=== PATIENT | female | born 1970 | race Caucasian/White ===

== ENCOUNTER 2016-04-07 06:23 | Emergency (ER) | payer MEDICARE, OTHER ==
[2016-04-07] MEDS ORDERED: KETOROLAC 30 MG/ML 1 ML VIAL IVP STA (06:41)
[2016-04-07] MEDS ORDERED: METOCLOPRAMIDE 5 MG/ML 2 ML VIAL IVP STA (06:41)
[2016-04-07] MEDS ORDERED: SODIUM CHLORIDE 0.9% 1,000 ML IV STA (06:41)
[2016-04-07] MEDS ORDERED: HYDROmorphone 1 MG/ML 1 ML SYRINGE IVP STA (06:46)
--- NOTE | 2016-04-07 06:47 | ED ---
General Adult HPI - General Source: patient, EMS, RN notes reviewed Mode of arrival: EMS Limitations: no limitations <Trevor Jeffrey - Last Filed: 04/07/16 06:44> <Selvin Qureshi - Last Filed: 04/07/16 10:01> - General Chief complaint: Abdominal Pain Stated complaint: Back/Flank Pain Time Seen by Provider: 04/07/16 06:32 - History of Present Illness Initial comments: Patient is a pleasant 46-year-old female presenting to the emergency department complaining of right lower back pain. Onset was yesterday afternoon. Symptoms have slowly progressed since that time. Patient thought this was her regular muscle pain and took a baclofen without improvement of symptoms. Patient did have some dry heaves. Nausea has eased off. Patient has been having some sweating. No history of kidney stones. No dysuria or hematuria. Patient denies abdominal discomfort. Patient states areas of right flank/back region. Discomfort is somewhat positional. (Trevor Jeffrey) - Related Data Home Medications Medication Instructions Recorded Confirmed Albuterol Sulfate [Proair Hfa] 2 puff INHALATION RT-QID PRN 10/12/13 04/07/16 Aspirin/Dipyridamole [Aggrenox 1 tab PO BID 10/12/13 04/07/16 25MG -200MG] Atorvastatin [Lipitor] 10 mg PO HS 10/12/13 04/07/16 Baclofen [Lioresal] 20 mg PO Q6H 10/12/13 04/07/16 Citalopram Hydrobromide [CeleXA] 20 mg PO HS 10/12/13 04/07/16 Fesoterodine Fumarate [Toviaz] 8 mg PO DAILY 10/12/13 04/07/16 Fluticasone/Salmeterol [Advair 1 puff INHALATION RT-BID 10/12/13 04/07/16 500-50 Diskus] Furosemide [Lasix] 40 mg PO DAILY PRN 10/12/13 04/07/16 Hydroxychloroquine Sulfate 200 mg PO BID 10/12/13 04/07/16 [Plaquenil] Insulin Aspart [NovoLOG] See Protocol SQ AC-TID 10/12/13 04/07/16 Levothyroxine Sodium [Synthroid] 75 mcg PO DAILY 10/12/13 04/07/16 Modafinil [Provigil] 200 mg PO BID 10/12/13 04/07/16 Nitroglycerin Sl Tabs [Nitrostat] 0.4 mg SL DIRECTED PRN 10/12/13 04/07/16 Pramipexole Di-HCl [Mirapex] 2 mg PO HS 10/12/13 04/07/16 Pregabalin [Lyrica] 300 mg PO BID 10/12/13 04/07/16 Verapamil HCl [Verapamil ER] 180 mg PO DAILY 10/12/13 04/07/16 carBAMazepine [TEGretol] 200 mg PO BID 10/12/13 04/07/16 cloNIDine HCL 0.3 mg PO TID 10/12/13 04/07/16 predniSONE See Taper PO DAILY 10/12/13 04/07/16 Diclofenac Potassium [Cataflam] 50 mg PO Q8H 04/07/16 04/07/16 Haloperidol [Haldol] 0.5 mg PO DAILY PRN 04/07/16 04/07/16 Medroxyprogesterone Acetate 150 mg IM ONCE 04/07/16 04/07/16 [Depo-Provera] metFORMIN HCL [Glucophage] 1,000 mg PO BID 04/07/16 04/07/16 Allergies Allergy/AdvReac Type Severity Reaction Status Date / Time bupropion HCl Allergy Unknown Verified 04/07/16 07:42 [From Wellbutrin] ketorolac tromethamine Allergy Unknown Verified 04/07/16 07:42 [From Toradol] tramadol HCl [From Ultram] Allergy Unknown Verified 04/07/16 07:42 adhesive AdvReac Rash/Hives Verified 04/07/16 07:42 Beta-Blockers AdvReac Unknown Verified 04/07/16 07:42 (Beta-Adrenergic Bloc Review of Systems ROS Other: All systems not noted in ROS Statement are negative. Constitutional: Denies: fever Eyes: Denies: eye pain ENT: Denies: ear pain Respiratory: Denies: cough Cardiovascular: Denies: chest pain Endocrine: Denies: fatigue Gastrointestinal: Denies: abdominal pain (Flank pain) Genitourinary: Denies: dysuria Musculoskeletal: Reports: back pain Skin: Denies: rash Neurological: Denies: weakness <Trevor Jeffrey - Last Filed: 04/07/16 06:44> ROS Other: All systems not noted in ROS Statement are negative. <TitusSelvin - Last Filed: 04/07/16 10:01> ROS Statement: Those systems with pertinent positive or pertinent negative responses have been documented in the HPI. Past Medical History Past Medical History: Asthma, Coronary Artery Disease (CAD), Chest Pain / Angina , COPD, CVA/TIA, Diabetes Mellitus, Fibromyalgia, GERD/Reflux, Hyperlipidemia, Hypertension, Osteoarthritis (OA), Renal Disease, Thyroid Disorder Additional Past Medical History / Comment(s): chronic pain, neuropathy, interstitial lung disease, ddd, CVA APRIL 2009 STILL HAS SOME MEMORY LOSS, MUSCLE SPASMS IN LEGS.POLYCYSTIC OVARY SYNDROME,PANCREATITIS History of Any Multi-Drug Resistant Organisms: None Reported Past Surgical History: Bariatric Surgery, Section, Cholecystectomy, Hernia Repair, Tonsillectomy Additional Past Surgical History / Comment(s): oopherectomy, UMBILICAL HERNIA, VATS BX, BRONCHOSCOPY Past Anesthesia/Blood Transfusion Reactions: No Reported Reaction Additional Past Anesthesia/Blood Transfusion Reaction / Comment(s): CLAUSTERPHOBIC, Past Psychological History: Anxiety, Depression, Panic Disorder Smoking Status: Never smoker Past Alcohol Use History: None Reported Additional Past Alcohol Use History / Comment(s): PT STARTED SMOKING AT AGE EARLY 31'S SMOKED X1 YEAR THEN QUIT, NO ETOH Past Drug Use History: None Reported - Past Family History Father Additional Family Medical History / Comment(s): AGE 72 HEALTHY UNK PROBLEMS Mother Family Medical History: Hypertension Additional Family Medical History / Comment(s): MOM IS 64 <Trevor Jeffrey - Last Filed: 04/07/16 06:44> General Exam Limitations: no limitations General appearance: alert, other (Patient has a difficult time getting comfortable) Head exam: Present: atraumatic Eye exam: Present: normal appearance, PERRL ENT exam: Present: normal oropharynx Neck exam: Present: normal inspection Respiratory exam: Present: normal lung sounds bilaterally Cardiovascular Exam: Present: regular rate, normal rhythm Expanded Peripheral pulses: 2+: Posterior Tibialis (R), Posterior Tibialis (L) GI/Abdominal exam: Present: soft. Absent: distended, tenderness, guarding, rebound, rigid Extremities exam: Present: normal inspection Back exam: Present: normal inspection. Absent: tenderness, CVA tenderness (R), vertebral tenderness Neurological exam: Present: alert, oriented X3, other (Straight leg raise negative ). Absent: motor sensory deficit Psychiatric exam: Present: normal affect, normal mood Skin exam: Absent: rash <Trevor Jeffrey - Last Filed: 04/07/16 06:44> Course <Trevor Jeffrey - Last Filed: 04/07/16 06:44> <Selvin Qureshi - Last Filed: 04/07/16 10:01> Vital Signs 04/07/16 04/07/16 06:25 09:13 Temperature 98.1 F Pulse Rate 81 94 Respiratory 20 16 Rate Blood Pressure 159/89 124/96 O2 Sat by Pulse 97 97 Oximetry - Reevaluation(s) Reevaluation #1: 04/07/16 10:00 The patient did have a panic attack and stated she could not get a CAT scan done she stated that Ativan currently does not work which she is agreed to try some. She did get relief with the Ativan and the CAT scan was performed. (Selvin Qureshi) Medical Decision Making <Trevor Jeffrey - Last Filed: 04/07/16 06:44> - Lab Data Result diagrams: 04/07/16 06:30 04/07/16 06:30 - Radiology Data Radiology results: report reviewed (I did review the imaging and reports no acute findings are seen related to the presentation. This is likely exacerbation of chronic pain.), image reviewed <Selvin Qureshi - Last Filed: 04/07/16 10:01> - Medical Decision Making This is likely exacerbation of chronic pain patient will be discharged with follow-up with her doctor return when necessary (Selvin Qureshi) - Lab Data Lab Results 04/07/16 04/07/16 04/07/16 Range/Units 06:30 06:30 06:30 WBC 8.5 (3.8-10.6) k/uL RBC 3.98 (3.80-5.40) m/uL Hgb 12.7 (11.4-16.0) gm/dL Hct 37.7 (34.0-46.0) % MCV 94.7 (80.0-100.0) fL MCH 32.0 (25.0-35.0) pg MCHC 33.8 (31.0-37.0) g/dL RDW 13.4 (11.5-15.5) % Plt Count 372 (150-450) k/uL Neutrophils % 81 % Lymphocytes % 11 % Monocytes % 5 % Eosinophils % 1 % Basophils % 0 % Neutrophils # 6.9 (1.3-7.7) k/uL Lymphocytes # 0.9 L (1.0-4.8) k/uL Monocytes # 0.4 (0-1.0) k/uL Eosinophils # 0.1 (0-0.7) k/uL Basophils # 0.0 (0-0.2) k/uL PT 9.8 (9.0-12.0) sec INR 1.0 (<1.1) APTT 21.3 L (22.0-30.0) sec Sodium 139 (137-145) mmol/L Potassium 4.2 (3.5-5.1) mmol/L Chloride 103 (98-107) mmol/L Carbon Dioxide 28 (22-30) mmol/L Anion Gap 8 mmol/L BUN 15 (7-17) mg/dL Creatinine 0.49 L (0.52-1.04) mg/dL Est GFR (MDRD) Af Amer >60 (>60 ml/min/1.73 sqM) Est GFR (MDRD) Non-Af >60 (>60 ml/min/1.73 sqM) Glucose 179 H (74-99) mg/dL Calcium 9.1 (8.4-10.2) mg/dL Total Bilirubin 0.5 (0.2-1.3) mg/dL AST 25 (14-36) U/L ALT 55 H (9-52) U/L Alkaline Phosphatase 82 (38-126) U/L Total Protein 6.4 (6.3-8.2) g/dL Albumin 3.7 (3.5-5.0) g/dL Amylase <30 L (30-110) U/L Lipase 43 (23-300) U/L HCG, Quant mIU/mL Urine Color Urine Appearance (Clear) Urine pH (5.0-8.0) Ur Specific [place] (1.001-1.035) Urine Protein (Negative) Urine Glucose (UA) (Negative) Urine Ketones (Negative) Urine Blood (Negative) Urine Nitrate (Negative) Urine Bilirubin (Negative) Urine Urobilinogen (<2.0) mg/dL Ur Leukocyte Esterase (Negative) 04/07/16 04/07/16 Range/Units 06:30 07:52 WBC (3.8-10.6) k/uL RBC (3.80-5.40) m/uL Hgb (11.4-16.0) gm/dL Hct (34.0-46.0) % MCV (80.0-100.0) fL MCH (25.0-35.0) pg MCHC (31.0-37.0) g/dL RDW (11.5-15.5) % Plt Count (150-450) k/uL Neutrophils % % Lymphocytes % % Monocytes % % Eosinophils % % Basophils % % Neutrophils # (1.3-7.7) k/uL Lymphocytes # (1.0-4.8) k/uL Monocytes # (0-1.0) k/uL Eosinophils # (0-0.7) k/uL Basophils # (0-0.2) k/uL PT (9.0-12.0) sec INR (<1.1) APTT (22.0-30.0) sec Sodium (137-145) mmol/L Potassium (3.5-5.1) mmol/L Chloride (98-107) mmol/L Carbon Dioxide (22-30) mmol/L Anion Gap mmol/L BUN (7-17) mg/dL Creatinine (0.52-1.04) mg/dL Est GFR (MDRD) Af Amer (>60 ml/min/1.73 sqM) Est GFR (MDRD) Non-Af (>60 ml/min/1.73 sqM) Glucose (74-99) mg/dL Calcium (8.4-10.2) mg/dL Total Bilirubin (0.2-1.3) mg/dL AST (14-36) U/L ALT (9-52) U/L Alkaline Phosphatase (38-126) U/L Total Protein (6.3-8.2) g/dL Albumin (3.5-5.0) g/dL Amylase (30-110) U/L Lipase (23-300) U/L HCG, Quant 3.6 mIU/mL Urine Color Yellow Urine Appearance Clear (Clear) Urine pH 5.5 (5.0-8.0) Ur Specific [place] 1.022 (1.001-1.035) Urine Protein Trace H (Negative) Urine Glucose (UA) 3+ H (Negative) Urine Ketones Trace H (Negative) Urine Blood Negative (Negative) Urine Nitrate Negative (Negative) Urine Bilirubin Negative (Negative) Urine Urobilinogen <2.0 (<2.0) mg/dL Ur Leukocyte Esterase Negative (Negative) Disposition <Trevor Jeffrey - Last Filed: 04/07/16 06:44> <Selvin Qureshi - Last Filed: 04/07/16 10:01> Clinical Impression: Back pain Disposition: HOME SELF-CARE Condition: Good Instructions: Low Back Strain (ED), Chronic Back Pain (ED)
[2016-04-07 07:07] LABS: Basophils % (A) 0 %; CH 32.9; CHCM 34.9; Eosinophils # (A) 0.1 k/uL (0-0.7); Eosinophils % (A) 1 %; HCT 37.7 % (34.0-46.0); HDW 3.04; HGB 12.7 gm/dL (11.4-16.0); Luc # (Auto) 0.21; Luc % (Auto) 3; Lymphocytes # (A) 0.9 k/uL (1.0-4.8); Lymphocytes % (A) 11 %; MCHC 33.8 g/dL (31.0-37.0); MCV 94.7 fL (80.0-100.0); Mean Platelet Volume 6.3; Monocytes # (A) 0.4 k/uL (0-1.0); Monocytes % (A) 5 %; Neutrophils # (A) 6.9 k/uL (1.3-7.7); Neutrophils % (A) 81 %; RBC 3.98 m/uL (3.80-5.40); RDW 13.4 % (11.5-15.5); WBC 8.5 k/uL (3.8-10.6)
[2016-04-07 07:20] LABS: ALT 55 U/L (9-52); AST 25 U/L (14-36); Alkaline Phosphatase 82 U/L (38-126); Amylase <30 U/L (30-110); Anion Gap 8 mmol/L; Blood Urea Nitrogen 15 mg/dL (7-17); Calcium 9.1 mg/dL (8.4-10.2); Carbon Dioxide 28 mmol/L (22-30); Chloride 103 mmol/L (98-107); Glucose 179 mg/dL (74-99); Non-African American GFR(MDRD) >60 (>60 ml/min/1.73 sqM); Potassium 4.2 mmol/L (3.5-5.1); Sodium 139 mmol/L (137-145); Total Bilirubin 0.5 mg/dL (0.2-1.3); Total Protein 6.4 g/dL (6.3-8.2)
[2016-04-07 07:28] LABS: Prothrombin Time 9.8 sec (9.0-12.0)
[2016-04-07 07:33] LABS: Partial Thromboplastin Time 21.3 sec (22.0-30.0)
[2016-04-07] MEDS ORDERED: LORazepam 2 MG/ML SYRINGE IV STA (07:41)
[2016-04-07 08:04] LABS: Appearance,Urine Clear (Clear); Bilirubin,Urine Negative (Negative); Glucose,Urine (UA) 3+ (Negative); Ketones,Urine Trace (Negative); Leukocyte Esterase,Urine Negative (Negative); Nitrite,Urine Negative (Negative); PH, Urine 5.5 (5.0-8.0); Protein,Urine Trace (Negative); Specific Gravity,Urine 1.022 (1.001-1.035); UA Billing (MACRO vs. MICRO) CHEM; Urobilinogen,Urine <2.0 mg/dL (<2.0)
--- NOTE | 2016-04-07 09:12 | CT ---
EXAMINATION TYPE: CT abdomen pelvis wo con DATE OF EXAM: 04/07/2016 8:41 AM COMPARISON: 03/06/2013 HISTORY: 46-year-old female Back and flank pain since 1600 hours on 04/06/2016 CT DLP: 2735.90 mGycm. Automated exposure control for dose reduction was used. TECHNIQUE: Contiguous axial scanning of the abdomen and pelvis without IV contrast. Coronal and sagit blanquita reconstructions performed. FINDINGS: Heart is upper limits of normal in size without pericardial effusion. Lung bases clear without pleura l effusion. Noncontrast appearance of the liver, adrenal glands, kidneys, spleen, and pancreas show no gross abno rmality. Cholecystectomy clips are present. A lap band is also present. The orientation of the lap band is unchanged from prior exam. The port si te appears unremarkable. Similar reticulations within the subcutaneous fat especially of the mid to lower abdomen with skin th ickening noted anteriorly and in the periumbilical region also relatively similar prior. No dilated small bowel, free fluid, or free air. No mesenteric or retroperitoneal lymphadenopathy. Th ere is some breathing motion causing artifacts. Portions of a normal appendix appear to be visualized, coronal images 49 through 52. There is mild st ool within the right hemicolon. No pericolonic inflammatory change. Bladder is nondistended. Uterus is visualized. Closely clustered small bowel loops in the pelvis and lack of contrast limits evaluation. Rectum appears normal. No abnormal fluid collection in the pelvis or pelvic lymphadenopathy seen. Bones: Old healed fracture deformity of the right inferior pubic ramus and multilevel degenerative ch anges throughout the lumbar and lower thoracic spine. No osseous destructive process. IMPRESSION: 1. Some edematous change within the subcutaneous fat of the mid to lower abdomen with anterior and p eriumbilical skin thickening. Correlate to exclude any evidence of cellulitis. 2. Stable appearance to the patient's lap band. 3. Otherwise, no acute inflammatory process identified. 4. Multilevel degenerative changes in the lumbar and visualized lower thoracic spine.
[2016-04-07 10:07] VITALS: BP 129/78; PULSE 86; RESP 22; TEMP 97.9
== END 2016-04-07 10:14 | disposition home or self-care (01) ==
LOC: EC 06:23
DX: M54.5 Low back pain (principal); G89.29 Other chronic pain; F41.0 Panic disorder [episodic paroxysmal anxiety]; J44.9 Chronic obstructive pulmonary disease, unspecified; J45.909 Unspecified asthma, uncomplicated; E11.9 Type 2 diabetes mellitus without complications; M79.7 Fibromyalgia; E78.5 Hyperlipidemia, unspecified; K21.9 Gastro-esophageal reflux disease without esophagitis; E07.9 Disorder of thyroid, unspecified; F32.9 Major depressive disorder, single episode, unspecified; Z79.51 Long term (current) use of inhaled steroids; Z79.84 Long term (current) use of oral hypoglycemic drugs; Z79.899 Other long term (current) drug therapy; Z79.52 Long term (current) use of systemic steroids; Z87.891 Personal history of nicotine dependence
CPT/HCPCS: 36415; 80053; 82150; 83690; 85025; 85610; 85730; 81003; 84702; 74176; 99285; 96374; 96375 ×2; 96361 ×3; J2060; J2765; J1170

== ENCOUNTER → 2016-05-12 | Outpatient (CLI) | payer MEDICARE ==
--- NOTE | 2016-05-12 10:18 | XR ---
EXAMINATION TYPE: XR elbow limited LT DATE OF EXAM ORDERED: 05/12/2016 10:13 AM HISTORY: M25.522 pain L elbow. COMPARISON: None. FINDINGS: No fracture, dislocation or elbow joint effusion is seen. IMPRESSION: NORMAL LEFT ELBOW.
== END | disposition home or self-care (01) ==
LOC: RADXRMAIN 09:47
PROVIDERS: ATTEND Family Medicine
DX: M25.522 Pain in left elbow (principal)

== ENCOUNTER → 2016-07-24 | Outpatient (CLI) | payer MEDICARE, OTHER ==
--- NOTE | 2016-07-27 08:50 | MM ---
Reason for exam: screening (asymptomatic). Last mammogram was performed 1 year and 7 months ago. History: Took hormonal contraceptives for 4 years. Taking progesterone for 6 years 5 months beginning at age 36. Physical Findings: A clinical breast exam by your physician is recommended on an annual basis and results should be correlated with mammographic findings. MG 3D Screening Mammo W/Cad Bilateral CC and MLO view(s) were taken. Prior study comparison: December 13, 2014, bilateral MG screening mammo w CAD. April 05, 2012, bilateral digital screening mammo w/CAD. There are scattered fibroglandular densities. No significant changes when compared with prior studies. ASSESSMENT: Benign, BI-RAD 2 RECOMMENDATION: Routine screening mammogram of both breasts in 1 year.
== END | disposition home or self-care (01) ==
LOC: RADMAMWWP 07:22
PROVIDERS: ATTEND Family Medicine
DX: Z12.31 Encounter for screening mammogram for malignant neoplasm of breast (principal)
CPT/HCPCS: 77063; G0202

== ENCOUNTER → 2016-08-07 | Outpatient (CLI) | payer MEDICARE, OTHER ==
--- NOTE | 2016-08-07 14:28 | XR ---
EXAMINATION TYPE: XR lumbar spine 2 or 3V DATE OF EXAM: 08/07/2016 CLINICAL HISTORY: Degenerative disc disease per patient. Low back pain per order. TECHNIQUE: Frontal and lateral images of the lumbar spine are obtained. COMPARISON: CT abdomen and pelvis April 07, 2016. FINDINGS: There are 5 lumbar type vertebral bodies identified. The lumbar spine shows satisfactory alignment without evidence of acute fracture or dislocation. Vertebral body heights are maintained. T here is multilevel disc space narrowing at is advanced at L3-L4 and L5-S1 levels. Endplate sclerosis is present. There is multilevel vacuum disc phenomenon redemonstrated. There is moderate multilevel a nterior and lateral spurring. Lap band device is seen overlying soft tissue. Cholecystectomy clips ar e redemonstrated. IMPRESSION: No acute fracture or dislocation is seen in the lumbar spine. Degenerative changes mid t o lower lumbar spine as detailed above without significant change from recent CT.
== END ==
LOC: RADXRMAIN 14:05
PROVIDERS: ATTEND Family Medicine
DX: M47.816 Spondylosis without myelopathy or radiculopathy, lumbar region (principal)
CPT/HCPCS: 72100

== ENCOUNTER → 2016-09-18 | Outpatient (CLI) | payer MEDICARE, OTHER ==
--- NOTE | 2016-09-18 10:12 | US ---
EXAMINATION TYPE: US pelvic complete DATE OF EXAM: 09/18/2016 COMPARISON: CT CLINICAL HISTORY: Abd mass LUQ R19.02. TECHNIQUE: Transabdominal (TA) Date of LMP: 4 years ago, patient on depo shot EXAM MEASUREMENTS: Uterus: 6.1 x 2.3 x 3.6 cm Endometrial Stripe: 0.5 cm Right Ovary: 1.6 x 1.4x 2.4 cm Left Ovary: Surgically absent cm 1. Uterus: Anteverted wnl 2. Endometrium: wnl 3. Right Ovary: wnl 4. Left Ovary: Surgically absent 5. Bilateral Adnexa: wnl 6. Posterior cul-de-sac: no free fluid IMPRESSION: 1. Normal pelvic ultrasound
--- NOTE | 2016-09-18 10:31 | US ---
EXAMINATION TYPE: US abdomen complete DATE OF EXAM: 09/18/2016 COMPARISON: CT CLINICAL HISTORY: Abd mass LUQ R19.02. patient has extensive abdominal surgery history of cholecystec pippa, hernia repair, laporascopic surgery repair, left oopherectomy. EXAM MEASUREMENTS: Liver Length: 14.3 cm Gallbladder Wall: Surgically absent cm CBD: 0.5 cm Spleen: 10.6 cm Right Kidney: 12.7 x 5.3 x 6.2 cm Left Kidney: 11.8 x 6.0 x 7.1 cm Pancreas: visualized portions appear echogenic Liver: echogenic focus left lobe measuring 1.4 x 1.2 x 1.4. No appreciable background hepatic steato sis or hepatocellular disease sonographically. Gallbladder: Surgically absent CBD: wnl Spleen: wnl Right Kidney: No hydronephrosis or masses seen Left Kidney: No hydronephrosis or masses seen Upper IVC: wnl Abd Aorta: wnl Scanned LLQ over palpable per patient, no definite abnormality seen, this area feels like thickenin g versus mass affect. The intrahepatic portion of the IVC and proximal abdominal aorta are within normal limits. Common bi le duct is unremarkable. The visualized portions of the pancreas are homogenous. The spleen is unre markable. Kidneys are symmetric and free of hydronephrosis. No renal lesions are seen. IMPRESSION: 1. Solitary hyperechoic 1.4 cm lesion within the left lower lobe liver. In a patient with no history of hepatocellular disease this most commonly represents a benign hepatic hemangioma. If further loren cterization is warranted dynamic contrast-enhanced CT or MR could be performed as this abnormality wa s not appreciated on the unenhanced CT of 04/07/2016. 2. No sonographic abnormality in left lower quadrant over the region of the patient's palpable abnorm ality other than skin thickening up to 4 mm as seen on the prior CT of 04/07/2016.
== END | disposition home or self-care (01) ==
LOC: RADUSWWP 09:16
PROVIDERS: ATTEND Family Medicine
DX: K76.9 Liver disease, unspecified (principal); R19.02 Left upper quadrant abdominal swelling, mass and lump
CPT/HCPCS: 76700; 76856

== ENCOUNTER → 2017-01-05 | Outpatient (CLI) | payer MEDICARE, OTHER ==
[~2017-01-05] MED LIST: DOBUTamine DRIP for NUC MED 500 MG in DEXTROSE/WATER 1 250ML.BAG IV ONE
--- NOTE | 2017-01-05 10:32 | US ---
EXAMINATION TYPE: US abdomen complete DATE OF EXAM: 01/05/2017 COMPARISON: US 2017 CLINICAL HISTORY: 46-year-old female R16.0 LIVER MASS LT LOBE. Follow up left liver lesion, history o f cholecystectomy, TECHNIQUE: Multiple sonographic images of the abdomen are obtained. FINDINGS: Rubber Insulator notes: obese patient Liver Length: 20.0 cm Gallbladder Wall: surgically absent CBD: 0.5 cm Spleen: 13.8 cm Right Kidney: 11.0 x 6.0 x 5.4 cm Left Kidney: 11.4 x 6.3 x 5.4 cm Pancreas: visualized portions appear hyperechoic, tail obscured by overlying midline bowel gas Liver: Enlarged at 20 cm. Redemonstrated 1.7 x 1.4 x 1.5cm hyperechoic lesion in the left hepatic lo be. Previously, this was measured at 1.4 x 1.2 x 1.4 cm. Suspect that this is relatively stable allow ing for some differences in measurement technique. Additional short interval follow-up is recommended . Gallbladder: surgically absent Evidence for sonographic Baird's sign: no CBD: visualized portions wnl, limited by overlying bowel gas Spleen: Borderline enlarged at 13.8cm, limited by overlying bowel gas Right Kidney: wnl Left Kidney: wnl Upper IVC: wnl Abd Aorta: visualized portions appear wnl, limited by overlying midline bowel gas IMPRESSION: 1. Hepatomegaly and hepatic steatosis. Correlate with LFTs, lipid profile, and patient risk factors. 2. 1.7 x 1.5 cm hyperechoic lesion in the left liver lobe. Suspected hemangioma. This is stable to po ssibly minimally increased in size, previously measured at 1.4 x 1.2 cm. Continued short interval (3- 6 months) follow-up is recommended.
--- NOTE | 2017-01-05 13:07 | ECHOS ---
STRESS ECHOCARDIOGRAM DATE OF SERVICE: 01/05/2017 MEDICATIONS:: BASELINE HEART RATE: 91 BASELINE BLOOD PRESSURE: MAXIMUM HEART RATE: 151 MAXIMUM BLOOD PRESSURE: 174/48 85% MPHR: 100% MPHR: METS: MAXIMUM STAGE REACHED: TOTAL EXERCISE TIME: INDICATIONS: Chest pain. CLINICAL INFORMATION: DOBUTAMINE STRESS ECHO REPORT Patient was given dobutamine infusion according to the standard protocol. Peak heart rate of 151 was achieved. Maximum blood pressure of 174/48 mmHg was noted. The resting EKG shows normal sinus rhythm with normal MA interval and QRS duration and normal ST-T waves. No ST-segment depression suggestive of ischemia is noted. The baseline echocardiographic images reveal normal left ventricular chamber size with normal left ventricular systolic function. At the peak dose of dobutamine infusion, normal increase in the wall thickness and contractility is noted. FINAL IMPRESSION: This dobutamine stress echocardiographic study is negative for stress-induced ischemia. The EKG portion of the stress test is not suggestive of ischemia. MMODL / IJN: [id number] /
== END | disposition home or self-care (01) ==
LOC: RADUSWWP 08:59
PROVIDERS: ATTEND Family Medicine
DX: K76.0 Fatty (change of) liver, not elsewhere classified (principal); K76.89 Other specified diseases of liver; I51.7 Cardiomegaly; E11.9 Type 2 diabetes mellitus without complications; I10 Essential (primary) hypertension
CPT/HCPCS: 93017; 76700; C8928; Q9957; 93350

== ENCOUNTER → 2017-03-24 | Outpatient (CLI) | payer MEDICARE ==
[2017-03-25 01:25] LABS: Gliadin AB IgA, Unit <0.2 U/mL
== END | disposition home or self-care (01) ==
LOC: LABWHC1 16:49
PROVIDERS: ATTEND Internal Medicine Gastroenterology
DX: K52.9 Noninfective gastroenteritis and colitis, unspecified (principal)
CPT/HCPCS: 36415; 83516; 87045; 87046; 87324; 87328; 87329; 89055

== ENCOUNTER → 2017-06-18 | Outpatient (CLI) | payer MEDICARE ==
--- NOTE | 2017-06-22 11:57 | P.ARTDOP ---
Arterial Doppler LOWER EXTREMITY ARTERIAL DOPPLER: DATE OF SERVICE: 06/18/2017 Reason for study: Bilateral leg pain. Doppler waveforms: Multiphasic bilaterally throughout. Pulse volume recording: Normal configurations throughout. Pressure gradients: None significance Ankle-brachial indices: Greater than 1 bilaterally. Toe pressures: 81 on the right, 66 on the left Impression: Normal study.
== END | disposition home or self-care (01) ==
LOC: RADUSWWP 07:00
PROVIDERS: ATTEND Family Medicine
DX: M79.605 Pain in left leg (principal); G89.29 Other chronic pain
CPT/HCPCS: 93923

== ENCOUNTER → 2017-09-24 | Outpatient (CLI) | payer MEDICARE ==
[2017-09-24 08:03] LABS: Blood Urea Nitrogen 14 mg/dL (7-17)
--- NOTE | 2017-09-24 10:16 | CT ---
EXAMINATION TYPE: CT abdomen pelvis w con DATE OF EXAM: 09/24/2017 COMPARISON: 12/09/2016 HISTORY: 47-year-old female Urgency of urination, liver disease TECHNIQUE: Contiguous axial scanning of the abdomen and pelvis following administration of 100 ml Iso hudson 300 IV contrast. Delayed images through the kidneys and coronal/sagittal reconstructions perform ed. CT DLP: 1977 mGycm Automated exposure control for dose reduction was used. FINDINGS: Heart upper limits of normal in size without pericardial effusion. Lung bases clear without pleural effusion. Tiny hiatal hernia. Lap band is in place. Liver borderline enlarged at 17.9 cm. There is focal fat along the anterior falciform ligament redemo nstrated. Tight liver windows show faint 1.4 cm hypodensity in the segment 3 left liver lobe, axial i mage 31 which probably corresponds to the 09/18/2016 ultrasound finding. Overall size is unchanged. Sim ilar faint hypodensity was present in retrospect on the 12/09/2016 CT as well. No other focal liver l esion seen. No biliary ductal dilatation. Patient status post cholecystectomy. Portal venous system i s patent. Adrenal glands, right kidney, spleen, and pancreas appear within normal limits. Stable 1.5 cm medial left renal cyst. No dilated small bowel, free fluid, or free air. No mesenteric or retroperitoneal lymphadenopathy. Normal appendix. Oral contrast progressed into the transverse colon. There is moderate stool burden w ithout pericolonic inflammatory change. Similar skin thickening along the mid and lower abdomen with some subcutaneous fat reticulation. Bladder partially distended. Uterus and right ovary are visualized. Left ovary not clearly seen. No a bnormal fluid collection in the pelvis or pelvic lymphadenopathy. Bones: Old healed fracture of the right inferior pubic ramus. Degenerative changes throughout the vis ualized spine with nearly grade 2 anterolisthesis at L4-L5. IMPRESSION: 1. BORDERLINE SIZE LIVER (17.9 CM). THERE IS SOME FOCAL FAT ANTERIORLY AND A VAGUE HYPODENSE LESION M EASURING 1.4 CM IN THE LEFT LIVER LOBE LIKELY CORRESPONDING TO THE 09/18/2016 ECHOGENIC ULTRASOUND FIND ING. ATYPICAL HEMANGIOMA OR AN AREA OF FOCAL FAT ARE SUSPECTED GIVEN THE STABILITY. 2. ADVANCED DEGENERATIVE CHANGES THROUGHOUT THE SPINE WITH NEARLY GRADE 2 ANTEROLISTHESIS AT L4-L5. 3. SKIN THICKENING ALONG THE ANTERIOR MID TO LOWER ABDOMINAL WALL WITH RETICULATIONS IN THE SUBCUTANE OUS FAT. POSSIBLE CHRONIC CUTANEOUS INDURATION. CORRELATE TO EXCLUDE CELLULITIS.
== END | disposition home or self-care (01) ==
LOC: RADCTMAIN 07:27
PROVIDERS: ATTEND Family Medicine
DX: K76.89 Other specified diseases of liver (principal); R23.4 Changes in skin texture
CPT/HCPCS: 82565; 84520; 74177; 36415; Q9967

== ENCOUNTER → 2017-11-05 | Outpatient (CLI) | payer MEDICARE ==
[2017-11-05 12:28] LABS: Anion Gap 10 mmol/L; Blood Urea Nitrogen 16 mg/dL (7-17); Calcium 9.5 mg/dL (8.4-10.2); Carbon Dioxide 26 mmol/L (22-30); Chloride 106 mmol/L (98-107); Glucose 98 mg/dL (74-99); Magnesium 1.7 mg/dL (1.6-2.3); Potassium 4.6 mmol/L (3.5-5.1); Sodium 142 mmol/L (137-145)
== END ==
LOC: LABWHC1 10:39
PROVIDERS: ATTEND Internal Medicine
DX: E78.2 Mixed hyperlipidemia (principal); I10 Essential (primary) hypertension; R07.89 Other chest pain
CPT/HCPCS: 36415; 80048; 83735

== ENCOUNTER 2017-11-10 06:38 | Day surgery (SDC) | payer MEDICARE ==
[2017-11-08 13:03] VITALS: BMI 39.1
[~2017-11-10 06:38] MED LIST changes: -DOBUTamine DRIP for NUC MED 500 MG in DEXTROSE/WATER 1 250ML.BAG IV ONE; +HYDROmorphone 0.5 MG/0.5 ML SYRINGE IVP PRN; +LACTATED RINGERS 1,000 ML IV SCH; +LIDOCAINE 1% 20 ML VIAL (10MG/ML) FOR IV START INTRADERMA PRN
[2017-11-10 07:10] VITALS: TEMP 98.5
[2017-11-10] MEDS ORDERED: HYDROCORTISONE SUCCINATE 100 MG/2 ML VIAL IV STA (07:14)
[2017-11-10 07:21] LABS: Glucose,Whole Blood 122 mg/dL (75-99)
[2017-11-10] MEDS ORDERED: PROPOFOL 10 MG/ML 20 ML VIAL IV ONE (07:38)
[2017-11-10 08:08] VITALS: RESP 16
[2017-11-10 08:36] VITALS: BP 118/80; PULSE 72
--- NOTE | 2017-11-10 08:36 | P.PCN ---
Date of Procedure: 11/10/17 Procedure(s) Performed: Brief history: Patient is a pleasant 47-year-old white female, scheduled for an upper endoscopy as well as colonoscopy as a part of evaluation of evaluation of progressive dysphagia to solids for the last 10 years duration. She has history of lab and surgery done in 2006 and since then has been having persistent dysphagia. She usually has stomach with solids mostly with bread and meat. She is status post hiatal hernia repair by Dr. Bird. She also has intermittent rectal bleeding and hence scheduled for colonoscopy today. Procedure performed: Esophagogastroduodenoscopy and biopsy Colonoscopy Preoperative diagnosis: Dysphagia Rectal bleeding Anesthesia: MAC Procedure: After informed consent was obtained from the patient was brought into the endoscopy unit and IV sedation was administered by anesthesia under continuous monitoring. Initially upper endoscopy was done. The Olympus GF 160 video endoscope was inserted inserted into the mouth and esophagus intubated without any difficulty and was gradually advanced into the stomach and duodenum and carefully examined. The bulb and second part of the duodenum appeared normal. The scope was then withdrawn into the stomach adequately insufflated with air and upon careful examination the antrum had erosive gastritis and biopsies were done from this area. The body, cardia and fundus appeared normal. The scope was then withdrawn into the esophagus. The GE junction was located at 39 cm to the incisors. It appeared regular with no erythema erosions or ulcerations. Rest of the esophagus appeared normal. biopsies were done from the distal esophagus rule out esophagitis or peptic esophagitis. No evidence of esophageal stricture. Patient tolerated the procedure well. At this time the patient continued to remain sedation. Initial digital rectal examination was normal. Olympus CF 160 video colonoscope was then inserted into the rectum and gradually advanced to the cecum without any difficulty. Careful examination was performed as the scope was gradually being withdrawn. The prep was excellent. The cecum, ascending colon, transverse colon, descending colon, sigmoid colon and rectum appeared normal. Retroflexion was performed in the rectum ansmall internal hemorrhoidsere noted. Patient tolerated the procedure well. Impression: 1. Upper endoscopy revealed antral erosive gastritis and a small hiatal hernia. 2. Colonoscopy was essentially within normal limits with no evidence of colitis or colorectal neoplasia. Small internal hemorrhoids seen. Recommendations: Findings of this examination were discussed with the patient as well mahsa family. She was advised to follow with the biopsy results. She will continue her current medications and she'll be seen in office in 2-4 weeks.
== END 2017-11-10 09:12 | disposition home or self-care (01) ==
LOC: ORWHC2ENDO 06:38
PROVIDERS: ATTEND Internal Medicine Gastroenterology
DX: K52.81 Eosinophilic gastritis or gastroenteritis (principal); K29.50 Unspecified chronic gastritis without bleeding; K44.9 Diaphragmatic hernia without obstruction or gangrene; K64.8 Other hemorrhoids; I20.9 Angina pectoris, unspecified; I10 Essential (primary) hypertension; E78.5 Hyperlipidemia, unspecified; J98.4 Other disorders of lung; J84.10 Pulmonary fibrosis, unspecified; I69.311 Memory deficit following cerebral infarction; E72.12 Methylenetetrahydrofolate reductase deficiency; Z79.890 Hormone replacement therapy; Z79.52 Long term (current) use of systemic steroids; Z79.899 Other long term (current) drug therapy; Z88.5 Allergy status to narcotic agent; Z88.8 Allergy status to other drugs, medicaments and biological substances
CPT/HCPCS: 88305; 45378; 43239; J1720; J2704

== ENCOUNTER → 2018-04-14 | Outpatient (CLI) | payer MEDICARE ==
--- NOTE | 2018-04-15 10:29 | MM ---
Reason for exam: screening (asymptomatic). Last mammogram was performed 1 year and 9 months ago. History: Took hormonal contraceptives for 4 years. Taking progesterone for 6 years 5 months beginning at age 36. Physical Findings: A clinical breast exam by your physician is recommended on an annual basis and results should be correlated with mammographic findings. MG 3D Screening Mammo W/Cad Bilateral CC and MLO view(s) were taken. Prior study comparison: July 24, 2016, bilateral MG 3d screening mammo w/cad. December 13, 2014, bilateral MG screening mammo w CAD. The breast tissue is heterogeneously dense. This may lower the sensitivity of mammography. Benign appearing bilateral calcifications. No significant changes when compared with prior studies. ASSESSMENT: Benign, BI-RAD 2 RECOMMENDATION: Routine screening mammogram of both breasts in 1 year.
== END ==
LOC: RADMAMWWP 12:52
PROVIDERS: ATTEND Family Medicine
DX: Z12.31 Encounter for screening mammogram for malignant neoplasm of breast (principal)
CPT/HCPCS: 77063; 77067

== ENCOUNTER → 2018-12-06 | Outpatient (CLI) | payer MEDICARE ==
[2018-12-06 13:09] LABS: Basophils # (A) 0.1 k/uL (0-0.2); Basophils % (A) 1 %; Eosinophils # (A) 0.7 k/uL (0-0.7); Eosinophils % (A) 12 %; HCT 35.2 % (34.0-46.0); HGB 12.1 gm/dL (11.4-16.0); Lymphocytes # (A) 1.4 k/uL (1.0-4.8); Lymphocytes % (A) 24 %; MCH 31.1 pg (25.0-35.0); MCHC 34.3 g/dL (31.0-37.0); MCV 90.8 fL (80.0-100.0); Mean Platelet Volume 5.4; Monocytes # (A) 0.3 k/uL (0-1.0); Monocytes % (A) 5 %; Neutrophils # (A) 3.3 k/uL (1.3-7.7); Neutrophils % (A) 55 %; Platelet Count 475 k/uL (150-450); RBC 3.88 m/uL (3.80-5.40); RDW 12.1 % (11.5-15.5); WBC 5.9 k/uL (3.8-10.6)
--- NOTE | 2018-12-06 14:24 | XR ---
EXAMINATION TYPE: XR chest 2V DATE OF EXAM: 12/06/2018 COMPARISON: None HISTORY: Right-sided chest. Chest wall pain. TECHNIQUE: Frontal and lateral views of the chest are obtained. FINDINGS: Chronic rib fracture deformities are seen of the lateral right mid ribs as well as on the left within the mid and lower anterior lateral ribs. No acute displaced fracture is grossly seen. Car diomediastinal silhouette is mildly enlarged. No focal consolidation, pleural effusion or pneumothora x. Cholecystectomy clips are noted. IMPRESSION: No acute cardiopulmonary process. Bilateral old healed rib fracture deformities within t he right lateral mid ribs and on the left within the mid and lower anterior lateral ribs.
[2018-12-06 20:05] LABS: Hemoglobin A1C 5.3 % (4.0-6.0)
[2018-12-06 20:27] LABS: % Iron Saturation 40.26 (12.00-45.00); African American GFR (CKD) 125.8 (60.0-200.0); Albumin 4.3 g/dL (3.80-4.90); Albumin/Globulin Ratio 3.07 (1.60-3.17); Calcium 9.3 mg/dL (8.7-10.3); Chol/HDL Ratio 3.56; Globulin 1.4 g/dL (1.6-3.3); Potassium 4.5 mmol/L (3.5-5.5); Total Bilirubin 0.4 mg/dL (0.2-1.2); Total Protein 5.7 g/dL (6.2-8.2); Uric Acid 3.8 mg/dL (2.9-7.7)
[2018-12-06 20:38] LABS: Folate, Serum 7.3 ng/mL
== END | disposition home or self-care (01) ==
LOC: LABWHC1 12:07
PROVIDERS: ATTEND Family Medicine
DX: R07.89 Other chest pain (principal); R09.81 Nasal congestion; J32.9 Chronic sinusitis, unspecified; E55.9 Vitamin D deficiency, unspecified; I10 Essential (primary) hypertension; E11.65 Type 2 diabetes mellitus with hyperglycemia; E03.9 Hypothyroidism, unspecified
CPT/HCPCS: 36415; 71046; 80053; 80061; 82306; 82607; 82728; 82746; 83036; 83540; 83550; 84443; 84550; 85025

== ENCOUNTER → 2019-04-25 | Outpatient (CLI) | payer MEDICARE ==
--- NOTE | 2019-04-26 13:21 | MM ---
Reason for exam: screening (asymptomatic). Last mammogram was performed 1 year ago. History: Took hormonal contraceptives for 4 years. Taking progesterone for 6 years 5 months beginning at age 36. Physical Findings: A clinical breast exam by your physician is recommended on an annual basis and results should be correlated with mammographic findings. MG 3D Screening Mammo W/Cad Bilateral CC and MLO view(s) were taken. Prior study comparison: April 14, 2018, bilateral MG 3d screening mammo w/cad. July 24, 2016, bilateral MG 3d screening mammo w/cad. There are scattered fibroglandular densities. Benign appearing bilateral calcifications. No suspicious abnormality. No significant changes when compared with prior studies. ASSESSMENT: Benign, BI-RAD 2 RECOMMENDATION: Routine screening mammogram of both breasts in 1 year.
== END | disposition home or self-care (01) ==
LOC: RADMAMWWP 09:16
PROVIDERS: ATTEND Family Medicine
DX: Z12.31 Encounter for screening mammogram for malignant neoplasm of breast (principal)
CPT/HCPCS: 77063; 77067

== ENCOUNTER → 2020-12-26 | Outpatient (CLI) | payer MEDICARE ==
[2020-12-26 13:12] VITALS: BP 142/86; PULSE 80; RESP 18; TEMP 98.4
--- NOTE | 2020-12-26 14:03 | P.PAINCN ---
History of Present Illness - Reason for Consult Consult date: 12/26/20 Lumbar back pain - Chief Complaint Lumbar back pain - History of Present Illness Mrs. Knight is a 50 year old pleasant female patient came to [facility] pain management clinic for initial evaluation for her lumbar back pain. Patient has ongoing lumbar, neck, or arthritis pain for many years. Patient described pain as aching, sharp, throbbing, spasm type of pain. Patient rated pain 6 out of 10 in severity. Which may very her pain level from 4-9 out of 10 in severity. Lumbar back pain is not radiating to her lower extremities.. Pain increases with activities, and standing, walking, sitting, bending forward, and lifting. Pain decreases with pain medications and physical therapy. Overall patient activities- decreased . Pain medications helping to some extent. Bec ause of the pain patient is feeling lack of sleep and interest and energy sometimes. Denied any bowel or bladder problems. Patient denies any adverse effects to medications. Using a walker as a walking aids for walking. Patient denied any suicidal or homicidal ideations intent or plan. At this time patient also denies any auditory or visual hallucinations. There are no signs of narcotic diversion/misuse/overuse and no new-onset weakness, bowel/bladder incontinence, saddle anesthesia, or no red flag symptoms. Review of Systems All systems: negative Constitutional: Denies chills, Denies fever Eyes: denies blurred vision, denies pain Ears, nose, mouth and throat: Denies headache, Denies sore throat Cardiovascular: Denies chest pain, Denies shortness of breath Respiratory: Denies cough Gastrointestinal: Denies abdominal pain, Denies diarrhea, Denies nausea, Denies vomiting Genitourinary: Denies dysuria, Denies hematuria Musculoskeletal: Reports low back pain, Reports muscle cramps, Reports myalgias, Reports neck pain, Reports neck stiffness Integumentary: Denies pruritus, Denies rash Neurological: Denies numbness, Denies weakness Psychiatric: Denies anxiety, Denies depression Endocrine: Denies fatigue, Denies weight change Past Medical History Past Medical History: Asthma, Coronary Artery Disease (CAD), Chest Pain / Angina, COPD, CVA/TIA, Diabetes Mellitus, Fibromyalgia, GERD/Reflux, Hyperlipidemia, Hypertension, Musculoskeletal Disorder, Osteoarthritis (OA), Sleep Apnea/CPAP/BIPAP, Thyroid Disorder Additional Past Medical History / Comment(s): Hx Anemia. "Hypercoaguability issue". Chronic pain, neuropathy, interstitial lung disease, Degenerative Disc Disease. HX CVA APRIL 2009 STILL HAS SOME MEMORY LOSS, MUSCLE SPASMS IN LEGS. POLYCYSTIC OVARY SYNDROME, PANCREATITIS. No CPAP use. History of Any Multi-Drug Resistant Organisms: None Reported Past Surgical History: Bariatric Surgery, Section, Cholecystectomy, Hernia Repair, Tonsillectomy Additional Past Surgical History / Comment(s): Oopherectomy, UMBILICAL HERNIA, VATS(Video Assisted Lung Biospy)BX, BRONCHOSCOPY. Past Anesthesia/Blood Transfusion Reactions: No Reported Reaction Additional Past Anesthesia/Blood Transfusion Reaction / Comm: CLAUSTERPHOBIC. R eceived blood in past with no blood tranfusion reaction. Smoking Status: Former smoker - Past Family History Father Family Medical History: Cancer, Pulmonary Embolus Additional Family Medical History / Comment(s): SKIN, LYMPHOMA. Mother Family Medical History: Hypertension Additional Family Medical History / Comment(s): MOM IS 64 Medications and Allergies Home Medications Medication Instructions Recorded Confirmed Type Aspirin/Dipyridamole [Aggrenox 1 tab PO BID 10/12/13 12/26/20 History 25MG -200MG] Baclofen [Lioresal] 20 mg PO BID 10/12/13 12/26/20 History Fluticasone/Salmeterol [Advair 1 puff INHALATION RT-BID 10/12/13 12/26/20 History 500-50 Diskus] Levothyroxine Sodium [Synthroid] 75 mcg PO Q48H 10/12/13 12/26/20 History Nitroglycerin Sl Tabs [Nitrostat] 0.4 mg SL DIRECTED PRN 10/12/13 12/26/20 History Verapamil HCl [Verapamil ER] 180 mg PO DAILY 10/12/13 12/26/20 History metFORMIN HCL [Glucophage] 1,000 mg PO BID 04/07/16 12/26/20 History Liraglutide [Victoza 3-Masood] 1.8 mg SQ DAILY 07/22/17 12/26/20 History Acetaminophen [Tylenol Extra 1,500 mg PO DIRECTED PRN 11/08/17 12/26/20 History Strength] Levothyroxine Sodium [Synthroid] 50 mcg PO Q48H 11/08/17 12/26/20 History Atorvastatin [Lipitor] 40 mg PO HS 12/23/20 12/26/20 History Butalb/Acetaminophen/Caffeine 1 - 2 cap PO Q4HR PRN 12/23/20 12/26/20 History [Fioricet 50-300-40 mg Capsule] Citalopram Hydrobromide [CeleXA] 40 mg PO QAM 12/23/20 12/26/20 History Famotidine [Pepcid] 40 mg PO DAILY 12/23/20 12/26/20 History Fluticasone Nasal [place] [Flonase 1 spray EA NOSTRIL DAILY 12/23/20 12/26/20 History Nasal [place]] Ibuprofen 800 mg PO Q8H PRN 12/23/20 12/26/20 History Losartan Potassium [Cozaar] 100 mg PO HS 12/23/20 12/26/20 History Tamsulosin HCl [Flomax] 0.4 mg PO DAILY 12/23/20 12/26/20 History Allergies Allergy/AdvReac Type Severity Reaction Status Date / Time bupropion HCl Allergy Anaphylaxis Verified 12/26/20 12:44 [From Wellbutrin] ketorolac tromethamine Allergy Hallucinati Verified 12/26/20 12:44 [From Toradol] ons tramadol HCl [From Ultram] Allergy Rash/Hives, Verified 12/26/20 12:44 MIGRAINE adhesive AdvReac Rash/Hives Verified 12/26/20 12:44 Beta-Blockers AdvReac AVOIDS D/T Verified 12/26/20 12:44 (Beta-Adrenergic Bloc LUNG DISEASE Physical Exam Vitals: Vital Signs Temp Pulse Resp BP 12/26/20 13:07 98.4 F 80 18 142/86 General: Well-developed, well-nourished, no acute distress HEENT: Normocephalic, and atraumatic Neck: Supple, no neck swelling Psychiatric: Appropriate mood, and affect 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 Sensation grossly intact Lower extremity: Normal strength, and decreased range of motion secondary to pain Lumbar spine: Paravertebral tenderness: positive Lumbar facet load test : positive Sacroiliac joint tenderness: Negative Multiple trigger points positive in the lumbar area Results Results: MRI of the lumbar spine done on 01/13/2020 showed Exam image at L3-L4 showed mild/moderate facet arthropathy, ligamentum flavum hypertrophy. There is a moderate broad-based posterior disc protrusion effacing the anterior thecal sac. There is a mild to moderate right and mild left-sided axial image at L4-L5 level shows spondylolisthesis with moderate facet degenerative changes, and ligamentum flavum hypertrophic. There is a moderate broad-based disc protrusion. There is a effacement of the anterior posterior lateral thecal sac. There is moderate to severe bilateral neural foraminal narrowing with encroachment on the exiting left L4 nerve on both sides. L5-S1 level showed mild to moderate facet hypertrophy bilaterally. There is a focal left Central disc protrusion. Spinal canal is not significantly effaced. Patent bilateral foramina. Assessment and Plan Assessment: Lumbar spondylosis without myelopathy A lumbar neural foramina narrowing at bilateral exiting L4 nerve root area Myofascial pain syndrome, and chronic pain syndrome Plan: #1 Diagnoses, prognosis, and multiple treatment options including but not limited to physical therapy, interventional therapy, adjunct medication therapy, narcotic medication, and surgical options were discussed with the patient. And all questions were answered to the patient's satisfaction. #2 treatment plan agreement : Patient was thoroughly discussed regarding the treatment options, alternatives, and importance of exercises as tolerated. Patient clearly understood. #3 Patient was counseled on importance of regular exercise. Including josselyn chi, aerobic exercises as tolerated. Which helps for chronic pain, and overall well- being. Patient also counseled regarding importance of weight control rolling chronic pain, and overall other health issues. By altering diet habits, minimizing sugar intake, and processed foods helps in minimizing Inflammation. Also discussed with the patient regarding intermittent fasting. #4 investigations: MAPS- reviewed , urine drug test- not done #5 diagnostic tests: None #6 consultation : Recommended physical therapy but patient refused as she tried in the past which was not helpful. She doesn't want to go any physical therapy at this time secondary to financial issues. # 7 interventional procedures: Bilateral lumbar L4-L5, and L5-S1 medial branch block #1 . Procedure, complications, alternatives discussed with the patient. #8 medications #1 Tylenol 500 mg by mouth every 8 hours as needed total dose not more than 2 g per day Medication side effects, complications, long-term consequences discussed with the patient. Patient recommended to contact the pain clinic if noticed any issues with given medications. #9 morphine milligrams equivalents dose ( MME) per day: 0. # 10 : Patient recommended to try TENS unit's, and percussion massage device #11 disposition: scheduled to follow up with pain clinic in 4 weeks duration. Time with Patient: Less than 30 PQRS Measure Charge Sheet Measure #130: Documentation of Current Meds in Medical Chart: Patient's medications documented in chart Measure #226: Tobacco Use: Screen & Cessation Intervention: Pt not a tobacco user Measure #111: Pneumonia Vaccination: Pneumococcal vaccine NOT administered or previously given Measure #47: Advance Care Plan: Advance care planning discussed & documented, pt chose/unable to give Measure #412: Opioid Treatment Agreement: No documentation of signed opioid treatment agreement Measure #408: Opioid Therapy Follow-up Evaluation: Patient had NO f/u eval minimum every 3 months during opioid therapy Measure #317: Preventitive Care & Scrn High Bld Press & F/U: Pre-hypertensive or hypertensive BP documented, pt will f/u with PCP Measure #128: Body Mass Index (BMI) Screening & Follow-up: BMI documented ABOVE normal parameters - f/u documented Measure #131: Pain Assessment & Follow-up: Pain positive & plan documented Measure #431: Unhealthy Alcohol Use Preventative Care & Scrn: Patient not identified as an unhealthy alcohol user Mode of Arrival: Walker PQRS Narrative: Smoking Status Never smoker Blood Pressure 142/86 Pain Intensity [Lower Back] 6 Scale Used Numeric (1 - 10) Home Medications: Ambulatory Orders Aspirin/Dipyridamole [Aggrenox 25MG -200MG] 1 tab PO BID 10/12/13 Baclofen [Lioresal] 20 mg PO BID 10/12/13 Fluticasone/Salmeterol [Advair 500-50 Diskus] 1 puff INHALATION RT-BID 10/12/13 Levothyroxine Sodium [Synthroid] 75 mcg PO Q48H 10/12/13 Nitroglycerin Sl Tabs [Nitrostat] 0.4 mg SL DIRECTED PRN 10/12/13 Verapamil HCl [Verapamil ER] 180 mg PO DAILY 10/12/13 metFORMIN HCL [Glucophage] 1,000 mg PO BID 04/07/16 Liraglutide [Victoza 3-Masood] 1.8 mg SQ DAILY 07/22/17 Acetaminophen [Tylenol Extra Strength] 1,500 mg PO DIRECTED PRN 11/08/17 Levothyroxine Sodium [Synthroid] 50 mcg PO Q48H 11/08/17 Atorvastatin [Lipitor] 40 mg PO HS 12/23/20 Butalb/Acetaminophen/Caffeine [Fioricet 50-300-40 mg Capsule] 1 - 2 cap PO Q4HR PRN 12/23/20 Citalopram Hydrobromide [CeleXA] 40 mg PO QAM 12/23/20 Famotidine [Pepcid] 40 mg PO DAILY 12/23/20 Fluticasone Nasal [place] [Flonase Nasal [place]] 1 spray EA NOSTRIL DAILY 12/23/20 Ibuprofen 800 mg PO Q8H PRN 12/23/20 Losartan Potassium [Cozaar] 100 mg PO HS 12/23/20 Tamsulosin HCl [Flomax] 0.4 mg PO DAILY 12/23/20
== END ==
LOC: PNWHC3 12:41
DX: M47.816 Spondylosis without myelopathy or radiculopathy, lumbar region (principal); M48.061 Spinal stenosis, lumbar region without neurogenic claudication; M79.18 Myalgia, other site; G89.4 Chronic pain syndrome; I25.10 Atherosclerotic heart disease of native coronary artery without angina pectoris; J44.9 Chronic obstructive pulmonary disease, unspecified; Z86.73 Personal history of transient ischemic attack (TIA), and cerebral infarction without residual deficits; E11.9 Type 2 diabetes mellitus without complications; K21.9 Gastro-esophageal reflux disease without esophagitis; E78.5 Hyperlipidemia, unspecified; I10 Essential (primary) hypertension; M19.90 Unspecified osteoarthritis, unspecified site; Z87.891 Personal history of nicotine dependence; Z79.82 Long term (current) use of aspirin; Z79.51 Long term (current) use of inhaled steroids; Z79.84 Long term (current) use of oral hypoglycemic drugs; Z79.899 Other long term (current) drug therapy; Z91.048 Other nonmedicinal substance allergy status; Z88.8 Allergy status to other drugs, medicaments and biological substances; Z88.6 Allergy status to analgesic agent
CPT/HCPCS: 99211

== ENCOUNTER → 2022-05-01 | Outpatient (CLI) | payer MEDICARE ==
--- NOTE | 2022-05-04 18:58 | MM ---
Reason for Exam: Screening (asymptomatic). Last mammogram was performed 3 year(s) and 0 month(s) ago. Patient History: Menarche at age 15. First Full-Term at age 28. Progesterone, starting at age 36 for 6 years, 5 months. Patient used Hormonal Contraceptives for 4 years. Paternal cousin had breast cancer at or over age 50. Risk Values: Mone 5 year model risk: 1.0%. NCI Lifetime model risk: 8.9%. Prior Study Comparison: 07/24/2016 Bilateral Screening Mammogram, [facility]. 04/14/2018 Bilateral Screening Mammogram, [facility]. 04/25/2019 Bilateral Screening Mammogram, [facility]. Tissue Density: There are scattered fibroglandular densities. Findings: Analyzed By CAD. Unchanged likely related to lymph nodes on both sides. Benign oil cyst, and vascular calcifications on both sides. Benign secretory calcifications medially in the right breast. There is no suspicious group of microcalcifications or new suspicious mass in either breast. Overall Assessment: Benign, BI-RAD 2 Management: Screening Mammogram of both breasts in 1 year. 1. Patient should continue monthly self breast exams. 2. A clinical breast exam by your physician is recommended on an annual basis. 3. This exam should not preclude additional follow-up of suspicious palpable abnormalities. Electronically signed and approved by: Caterina Davis M.D. Radiologist
== END | disposition home or self-care (01) ==
LOC: RADMAMWWP 16:19
PROVIDERS: ATTEND Family Medicine
DX: Z12.31 Encounter for screening mammogram for malignant neoplasm of breast (principal); Z80.3 Family history of malignant neoplasm of breast
CPT/HCPCS: 77063; 77067

== ENCOUNTER → 2023-09-01 | Outpatient (CLI) | payer MEDICARE ==
[2023-09-01 15:45] LABS: Basophils # (A) 0.07 X 10*3/uL (0.00-0.10); Basophils % (A) 1.1 %; Eosinophils % (A) 14.4 %; HCT 38.6 % (37.2-46.3); HGB 13.2 g/dL (12.0-15.0); Lymphocytes # (A) 1.73 X 10*3/uL (0.90-5.00); Lymphocytes % (A) 27.8 %; MCH 29.4 pg (27.0-32.0); MCHC 34.2 g/dL (32.0-37.0); Mean Platelet Volume 8.7 FL (9.5-12.2); Monocytes % (A) 6.4 %; NRBC Per 100 WBC 0 X 10*3/uL (0.00-0.01); Neutrophils # (A) 3.11 X 10*3/uL (1.80-7.70); Platelet Count 474 X 10*3/uL (140-440); RBC 4.49 X 10*6/uL (4.10-5.20); RDW 11.5 % (11.5-14.5); WBC 6.23 X 10*3/uL (4.50-10.00)
[2023-09-01 16:04] LABS: BUN/Creat Ratio 22.14 Ratio (12.00-20.00); Blood Urea Nitrogen 15.5 mg/dL (9.0-27.0); Chloride 103 mmol/L (96-109); Glucose 95 mg/dL (70-110); Magnesium 1.9 mg/dL (1.5-2.4); Potassium 4.9 mmol/L (3.5-5.5); Sodium 140 mmol/L (135-145)
[2023-09-01 16:05] LABS: ALT 15 U/L (8-44); AST 19 U/L (13-35); Albumin 4.3 g/dL (3.8-4.9); Albumin/Globulin Ratio 1.72 Ratio (1.60-3.17); Alkaline Phosphatase 86 U/L (41-126); Calcium 9.8 mg/dL (8.7-10.3); Globulin 2.5 g/dL (1.6-3.3); Total Bilirubin <0.2 mg/dL (0.3-1.2); Total Protein 6.8 g/dL (6.2-8.2)
== END | disposition home or self-care (01) ==
LOC: LABWHC1 11:47
PROVIDERS: ATTEND Family Medicine
DX: E27.40 Unspecified adrenocortical insufficiency (principal)
CPT/HCPCS: 36415; 80053; 83735; 85025

== ENCOUNTER → 2024-01-03 | Outpatient (CLI) | payer MEDICARE ==
[2024-01-03 15:08] LABS: Basophils # (A) 0.05 X 10*3/uL (0.00-0.10); Basophils % (A) 0.9 %; Eosinophils # (A) 0.46 X 10*3/uL (0.04-0.35); Eosinophils % (A) 8.6 %; HCT 36.8 % (37.2-46.3); HGB 12.4 g/dL (12.0-15.0); Lymphocytes # (A) 1.47 X 10*3/uL (0.90-5.00); Lymphocytes % (A) 27.4 %; MCH 30.6 pg (27.0-32.0); MCHC 33.7 g/dL (32.0-37.0); MCV 90.9 FL (80.0-97.0); Mean Platelet Volume 9.3 FL (9.5-12.2); Monocytes # (A) 0.43 X 10*3/uL (0.20-1.00); NRBC Per 100 WBC 0 X 10*3/uL (0.00-0.01); Neutrophils # (A) 2.94 X 10*3/uL (1.80-7.70); Neutrophils % (A) 54.7 %; Platelet Count 418 X 10*3/uL (140-440); RBC 4.05 X 10*6/uL (4.10-5.20); RDW 12.5 % (11.5-14.5); WBC 5.37 X 10*3/uL (4.50-10.00)
[2024-01-03 15:34] LABS: Chol/HDL Ratio 2.33 Ratio; LDL Cholesterol,Calculated 56.3 mg/dL (0.0-131.0); VLDL Calculation 10.52 mg/dL (5.00-40.00)
[2024-01-03 15:35] LABS: % Iron Saturation 16.24 (12.00-45.00); ALT 21 U/L (8-44); AST 20 U/L (13-35); Albumin 4.2 g/dL (3.8-4.9); Albumin/Globulin Ratio 2.21 Ratio (1.60-3.17); Alkaline Phosphatase 75 U/L (41-126); Blood Urea Nitrogen 15.4 mg/dL (9.0-27.0); Calcium 9.3 mg/dL (8.7-10.3); Carbon Dioxide 28.1 mmol/L (21.6-31.8); Chloride 106 mmol/L (96-109); Ferritin 34.2 ng/mL (10.0-291.0); Globulin 1.9 g/dL (1.6-3.3); Glucose 88 mg/dL (70-110); Iron 57 UG/DL (50-170); Magnesium 1.6 mg/dL (1.5-2.4); Potassium 4.6 mmol/L (3.5-5.5); Sodium 142 mmol/L (135-145); Total Bilirubin 0.3 mg/dL (0.3-1.2); Total Iron Binding Capacity 351 UG/DL (228-460); Total Protein 6.1 g/dL (6.2-8.2); Uric Acid 3.3 mg/dL (2.9-7.7)
[2024-01-03 19:25] LABS: Microalbumin Creatinine Ratio <7 mg/g Cr (0-30)
== END | disposition home or self-care (01) ==
LOC: LABWHC1 10:02
PROVIDERS: ATTEND Family Medicine
DX: E11.65 Type 2 diabetes mellitus with hyperglycemia (principal); E27.40 Unspecified adrenocortical insufficiency; E78.2 Mixed hyperlipidemia
CPT/HCPCS: 36415; 80053; 80061; 82043; 82306; 82570; 82607; 82728; 82746; 83036; 83540; 83550; 83735; 84443; 84550; 85025

== ENCOUNTER 2024-05-10 11:11 | Day surgery (SDC) | payer MEDICARE, OTHER ==
[~2024-05-10 11:11] MED LIST changes: -HYDROmorphone 0.5 MG/0.5 ML SYRINGE IVP PRN; +LIDOCAINE 1% (10MG/ML) FOR IV START INTRADERMA PRN; -LIDOCAINE 1% 20 ML VIAL (10MG/ML) FOR IV START INTRADERMA PRN
[2024-05-10 11:50] VITALS: TEMP 96.8
[2024-05-10] MEDS: IPRATROPIUM-ALBUTEROL 3 ML NEB INHALATION STA (11:50)
[2024-05-10] MEDS: IV FLUID CONTINUATION 1,000 ML IV ONE (11:58)
[2024-05-10] MEDS: LACTATED RINGERS 1,000 ML IV SCH (11:58)
[2024-05-10] MEDS: ATROPINE SULFATE 0.4 MG/ML 1 ML VIAL IM ONE (12:01)
[2024-05-10] MEDS: ONDANSETRON 4 MG/2 ML VIAL IVP STA (12:02)
[2024-05-10] MEDS: DEXAMETHASONE SOD PHOSPHATE 4 MG/ML 1 ML VIAL IVP STA (12:03)
[2024-05-10] MEDS: HYDROCORTISONE SUCCINATE 100 MG/2 ML VIAL IV STA (12:04)
[2024-05-10] MEDS: FAMOTIDINE 20 MG/2 ML VIAL IV STA (12:14)
[2024-05-10 12:20] LABS: Glucose,Whole Blood 94 mg/dL (70-110)
[2024-05-10] MEDS ORDERED: LIDOCAINE 1% INJ 10MG/ML (20 ML MDV) ONE (12:30)
[2024-05-10] MEDS ORDERED: PROPOFOL 10 MG/ML 20 ML VIAL IV ONE (12:30)
[2024-05-10] MEDS: LIDOCAINE 2% INJ 20 MG/ML INTRATRACH ONE (12:48)
[2024-05-10 13:12] VITALS: BP 99/65; PULSE 92; RESP 18
--- NOTE | 2024-05-10 19:42 | PCN ---
PROCEDURE NOTE PROCEDURES PERFORMED: Bronchoscopy, airway examination, therapeutic lavage, BAL. PREOPERATIVE DIAGNOSIS: Severe asthma, retained secretions. POSTOPERATIVE DIAGNOSIS: Severe asthma, retained secretions. OPERATORS: Dr. Wyman. Assissted by Jenifer Wadsworth DNP ANESTHESIA PROVIDED: Monitored anesthesia care. The patient's procedure done in room #2, [facility]. DESCRIPTION OF PROCEDURE: After the patient was adequately sedated and being fully monitored, the bronchoscope was inserted through the right nostril. It passed through the right nasopharynx into the oropharynx. The hypopharynx was identified and topicalized. The hypopharyngeal structures, including the anterior commissure, true cords, false cords, arytenoids, piriform sinuses, right and left, vallecula, epiglottis, all appeared normal. The glottic opening was topicalized, and the bronchoscope was pushed through the glottic opening into the trachea. There were thick secretions noted in the trachea. They were suctioned. The tracheal denisha was sharp. The right and left mainstem were topicalized. Right upper lobe and its 3 segments, right middle lobe and its 2 segments, right lower lobe and its 5 segments, left upper lobe proper and its 2 segments, lingula and its 2 segments, and left lower lobe and its 4 segments all had similar findings of diffuse airway erythema and hyperemia. There was mild mucosal friability. There was some vascular engorgement. There was no dominant mass or tumor. The secretions were suctioned with the aid of saline lavage. The bronchoscope was then wedged into the right middle lobe. We did a formal BAL. 30 mL of turbid fluid was not recovered. The fluid will be sent to the laboratory for analysis. There was no immediate complication. The patient tolerated the procedure well. The bronchoscope was withdrawn and the patient will be recovered. MMODL / IJN: [id number] / [facility] HOSPITALRomana
[2024-05-10 21:54] LABS: Appearance,BF Cloudy (Clear); RBC, Body Fluid 450 /UL (0-2000)
[2024-05-15 11:37] LABS: Nucleated Cells, Body Fluid 880 /UL
== END 2024-05-10 13:33 | disposition home or self-care (01) ==
LOC: ORWHC2ENDO 11:11
PROVIDERS: ATTEND Internal Medicine Critical Care Medicine
DX: J84.115 Respiratory bronchiolitis interstitial lung disease (principal); J32.9 Chronic sinusitis, unspecified; J45.50 Severe persistent asthma, uncomplicated; I25.10 Atherosclerotic heart disease of native coronary artery without angina pectoris; I67.9 Cerebrovascular disease, unspecified; I10 Essential (primary) hypertension; K21.9 Gastro-esophageal reflux disease without esophagitis; K52.81 Eosinophilic gastritis or gastroenteritis; D50.9 Iron deficiency anemia, unspecified; D68.59 Other primary thrombophilia; E03.9 Hypothyroidism, unspecified; E78.5 Hyperlipidemia, unspecified; E11.9 Type 2 diabetes mellitus without complications; E27.40 Unspecified adrenocortical insufficiency; E28.2 Polycystic ovarian syndrome; E55.9 Vitamin D deficiency, unspecified; E27.2 Addisonian crisis; E66.9 Obesity, unspecified; F32.A Depression, unspecified; F41.9 Anxiety disorder, unspecified; M79.7 Fibromyalgia; M19.90 Unspecified osteoarthritis, unspecified site; G47.33 Obstructive sleep apnea (adult) (pediatric); Z68.30 Body mass index [BMI] 30.0-30.9, adult; Z88.8 Allergy status to other drugs, medicaments and biological substances; Z88.6 Allergy status to analgesic agent; Z79.1 Long term (current) use of non-steroidal anti-inflammatories (NSAID); Z79.890 Hormone replacement therapy; Z79.02 Long term (current) use of antithrombotics/antiplatelets; Z79.84 Long term (current) use of oral hypoglycemic drugs; Z79.899 Other long term (current) drug therapy
CPT/HCPCS: 87798 ×3; 87496; 87498; 87529; 88108; 88305; 89050; 87502; 87634; 87070; 87205; 87116; 87102; 87206; 87635; 31624; J0461; J1100; J1720; J2405; J2003 ×2; J3490; J2704